=== PATIENT | male | born 1985 | race Caucasian/White ===

== ENCOUNTER 2019-04-28 05:15 | Emergency (ER) | payer OTHER ==
[~2019-04-28] VITALS: Ht 195.6 cm; Wt 98.4 kg
[2019-04-28 05:55] VITALS: BP 133/94
== END 2019-04-28 07:44 | disposition home or self-care (01) ==
LOC: ER 05:19
DX: S60.221A Contusion of right hand, initial encounter (principal); F17.210 Nicotine dependence, cigarettes, uncomplicated; W22.8XXA Striking against or struck by other objects, initial encounter; Y93.89 Activity, other specified; Y99.8 Other external cause status; Y92.89 Other specified places as the place of occurrence of the external cause
CPT/HCPCS: 73130

== ENCOUNTER 2025-02-26 15:20 | Emergency (ER) | payer OTHER ==
[~2025-02-26] VITALS: Ht 195.6 cm; Wt 113.6 kg
--- NOTE | 2025-02-26 15:43 | ED.PDOC ---
Back pain HPI HPI Comments This is a 39 year old male CHINGA presenting to the ED with chief complaint of back pain. Patient reports that he had been [place] his [place] in [employer] hours ago when he all of a sudden started to experiencing a mid-back spasm, going home early to rest. Patient relays that his spasm worsened and is now a 10/10 electric pain, needing to lay on the floor and call 911. Patient states he was on the floor for an hour prior to EMS arrival. EMS notes that he was given 1g of Tylenol, but no relief in pain was noted. Patient denies any numbness, weakness, tingling, syncope, fall, injury, or chest pain. Time Seen by MD: 15:39 Primary Care Provider: NONE Reviewed Notes: Nurses Notes, Clam Grower Notes, Medications, Allergies Allergies: Coded Allergies: NO KNOWN ALLERGIES (Unverified , 02/26/25) Home Meds Active Scripts Hydrocodone-Acetaminophen (Hydrocodone Bitartrate/AC 5-325 mg) 1 Tab Tab, 1 TAB PO Q8HP PRN for 7 Days, #21 TAB Prov:ADELA GRIJALVA MD 02/26/25 Information Source: Patient, Emergency Med Personnel Mode of Arrival: EMS Timing: Hours Duration: Since onset Location of Back pain: (B) Thoracic Severity: Moderate Prehospital treatment: None Quality: Cramping Onset: Spontaneous History of: None Modifying Factors: Nothing Past Medical History PAST MEDICAL HISTORY: Denies Surgical History: Denies all surgeries Family History Family History: Unknown Social History Smoker: Cigarettes Alcohol: Occasionally Drugs: Denies Drug Use Lives In: Home Constitutional: denies: chills, diaphoresis, fatigue, fever, malaise, sweats, weakness, others EENTM: denies: blurred vision, double vision, ear bleeding, ear discharge, ear drainage, ear pain, ear ringing, eye pain, eye redness, hearing loss, mouth pain, mouth swelling, nasal discharge, nose bleeding, nose congestion, nose pain, photophobia, tearing, throat pain, throat swelling, voice changes, others Respiratory: denies: cough, hemoptysis, orthopnea, SOB at rest, shortness of breath, SOB with excertion, stridor, wheezing, others Cardiovascular: denies: chest pain, dizzy spells, diaphoresis, Dyspnea on exertion, edema, irregular heart beat, left arm pain, lightheadedness, palpitations, PND, syncope, others Gastrointestinal: denies: abdomen distended, abdominal pain, blood streaked bowels, constipated, diarrhea, dysphagia, difficulty swallowing, hematemesis, melena, nausea, poor appetite, poor fluid intake, rectal bleeding, rectal pain, vomiting, others Genitourinary: denies: burning, dysuria, flank pain, frequency, hematuria, incontinence, penile discharge, penile sore, pain, testicle pain, testicle swelling, urgency, others Neurological: denies: dizziness, fainting, headache, left sided numbness, left sided weakness, numbness, paresthesia, pre-existing deficit, right sided numbness, right sided weakness, seizure, speech problems, tingling, tremors, weakness, others Musculoskeletal: reports: back pain; denies: gout, joint pain, joint swelling, muscle pain, muscle stiffness, neck pain, others Integumetry: denies: bruises, change in color, change in hair/nails, dryness, laceration, lesions, lumps, rash, wounds, others Allergic/Immunocompromised: denies: Difficulty Healing, Frequent Infections, Hives, Itching, others Hematologic/Lymphatic: denies: anemia, blood clots, easy bleeding, easy bruising, swollen glands, others Endocrine: denies: excessive hunger, excessive sweating, excessive thirst, excessive urination, flushing, intolerance to cold, intolerance to heat, unexpla ined weight gain, unexplained weight loss, others Psychiatric: denies: anxiety, bipolar disorder, depression, hopeless, panic disorder, schizophrenia, sleepless, suicidal, others All Other Systems: Reviewed and Negative Physical Exam General Appearance: Moderate Distress HEENT: Normal ENT Inspection, Pharynx Normal, TMs Normal Neck: Full Range of Motion, Non-Tender, Normal, Normal Inspection Respiratory: Chest Non-Tender, Lungs Clear, No Accessory Muscle Use, No Respiratory Distress, Normal Breath Sounds Cardiovascular: No Edema, No JVD, No Murmur, No Gallop, Normal Peripheral Pulses, Regular Rate/Rhythm Breast Exam: Deferred Gastrointestinal: No Organomegaly, Non Tender, No Pulsatile Mass, Normal Bowel Sounds, Soft Genitalia: Deferred Pelvic: Deferred Rectal: Deferred Extremities: No calf tenderness, Normal capillary refill, No pedal edema Musculoskeletal : Location: Bilateral Extremity Location: Back Apperance: Limited ROM, Tenderness: Moderate Neurologic: Alert, 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 Was a procedure done?: No Back Pain Differential Dx Differential Diagnosis: Musculoskeletal Pain, Pyelonephritis X-Ray, Labs, Meds, VS Vital Signs Date Time Temp Pulse Resp B/P (MAP) Pulse Ox O2 Delivery O2 Flow Rate FiO2 02/26/25 15:42 98.5 93 18 154/97 (116) 95 98.5 Lab Test 02/26/25 17:50 Range/Units Urine Color Yellow Yellow Urine Clarity Clear Clear Urine pH 5.5 5.0-9.0 Urine Specific [place] 1.030 1.001-1.035 Urine Protein Negative Negative Urine Ketones Negative Negative Urine Blood Negative Negative /uL Urine Nitrite Negative Negative Urine Bilirubin Negative Negative Urine Urobilinogen Normal Negative mg/dL Urine Leukocyte Esterase Negative Negative /uL Urine RBC 1 0 - 3 /hpf Urine Microscopic WBC 1 0-3 /HPF Urine Squamous Epithelial Cells Few <5 /hpf Urine Bacteria None seen None Seen /hpf Urine Mucus Few None Seen Urine Glucose Normal Normal mg/dL The urine test is negative for any infection The patient is being discharged and will follow up with the primary care doctor The patient will return to the emergency department's condition worsens The patient received Dilaudid, Zofran and Solu-Medrol IV push for the pain Images Reviewed?: Images reviewed and evaluated by me Time of 1ST Reevaluation: 19:20 Reevaluation 1ST: Improved Patient Education/Counseling: Diagnosis, Treatment, Prognosis, Need For Follow Up Family Education/Counseling: No Family Present Additional Information Reviewed patient's previous visit(s): 04/28/19 for right hand contusion The following tests were ordered, and results were reviewed by me: ALONSO Additional information was gathered from interviewing the following independent historian: EMS I reviewed and agreed with the following test results read by other provider: None I discussed treatments and results with medical personnel and: PATIENT Comprehensive systems review obtained and negative except for what is stated in the HPI. SEPSIS Sepsis Screen Physician Orders Heplock Iv (02/26/25 15:38) Vital Signs Date Time Temp Pulse Resp B/P (MAP) Pulse Ox O2 Delivery O2 Flow Rate FiO2 02/26/25 15:42 98.5 93 18 154/97 (116) 95 98.5 Departure 1 Departure Time of Disposition: 19:21 Impression: Primary Impression: Lumbar radiculopathy Disposition: HOME / SELF CARE / HOMELESS Condition: Fair e-Prescriptions Hydrocodone-Acetaminophen (Hydrocodone Bitartrate/AC 5-325 mg) 1 Tab Tab 1 TAB PO Q8HP PRN for 7 Days, #21 TAB Prov: ADELA GRIJALVA MD 02/26/25 Discharged With: Self Critical Care Note Critical Care Time?: No Stability Stability form required: No Heart Score Heart Score: Heart Score Response (Comments) Value History N/A 0 EKG N/A 0 Age N/A 0 Risk Factors N/A 0 Troponin N/A 0 Total 0 I personally scribed for ADELA GRIJALVA MD ([email or web address]) on 02/26/25 at 15:43. Electronically submitted by Skyler Arriaza ([email or web address]). I personally scribed for ADELA GRIJALVA MD ([email or web address]) on 02/26/25 at 15:43. Electronically submitted by Skyler Arriaza ([email or web address]). ADELA GRIJALVA MD Feb 26, 2025 15:43
[2025-02-26 17:52] LABS: Urine Bacteria None Seen /hpf (None Seen)
[2025-02-26 18:11] LABS: Urine Blood Negative /uL (Negative); Urine Clarity Clear (Clear); Urine Color Yellow (Yellow); Urine Mucus FEW (None Seen); Urine Protein, UAD Negative (Negative); Urine Squamous Epithelial Cell FEW /hpf (<5); Urine Urobilinogen Normal (Negative); Urine WBC 1 /HPF (0-3); Urine pH 5.5 (5.0-9.0)
[2025-02-26] MEDS: SODIUM CHLORIDE 0.9% 1,000 ML IV ONE (19:14)
[2025-02-26] MEDS: ONDANSETRON HCL 4 MG/2 ML VIAL IV ONE (19:15)
[2025-02-26] MEDS: methylPREDNISolone SOD SUCC 125 MG/2 ML VL IV ONE (19:15)
[2025-02-26] MEDS: HYDROmorphone HCL 2 MG/ML VL/or syr IV ONE (19:16)
[2025-02-26] MEDS ORDERED: HYDR-4902 PO (19:18)
[2025-02-26 20:48] VITALS: BP 143/86; PULSE 66; RESP 17; TEMP 98.7; O2SAT 97
== END 2025-02-26 20:54 | disposition home or self-care (01) ==
LOC: ER 15:20 → EDBD 15:20 → ER 20:52
DX: M54.16 Radiculopathy, lumbar region (principal); F17.210 Nicotine dependence, cigarettes, uncomplicated
CPT/HCPCS: 81001; 96361; 96374; 96375; 99284; J1171; J2405; J2919; J7030